=== PATIENT | male | born 1960 | race American Indian/Alaskan Native ===

== ENCOUNTER 2017-06-19 16:59 | Emergency (ER) | payer OTHER ==
[2017-06-19 17:13] VITALS: BP 118/87
[2017-06-19] MEDS ORDERED: MOTRIN PO ONE (18:15)
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
== END 2017-06-19 20:55 | disposition home or self-care (01) ==
LOC: ED 16:59
DX: Z04.1 Encounter for examination and observation following transport accident (principal); V49.49XA Driver injured in collision with other motor vehicles in traffic accident, initial encounter; Y93.89 Activity, other specified; Y99.8 Other external cause status; Y92.488 Other paved roadways as the place of occurrence of the external cause
CPT/HCPCS: 72070; 72100; 99283